=== PATIENT | female | born 1985 | race Caucasian/White ===

== ENCOUNTER 2017-12-25 00:02 | Emergency (ER) | payer BC ==
[~2017-12-25] VITALS: Ht 167.6 cm; Wt 59.0 kg
[~2017-12-25 00:02] MED LIST: CYCL-1 PO
[2017-12-25 00:14] VITALS: BP 131/59
[2017-12-25] MEDS ORDERED: SULF1TAB49 PO (03:36)
== END 2017-12-25 00:52 | disposition left against medical advice (07) ==
LOC: ER 00:02
DX: M79.643 Pain in unspecified hand (principal); Z53.21 Procedure and treatment not carried out due to patient leaving prior to being seen by health care provider

== ENCOUNTER 2017-12-25 00:59 | Emergency (ER) | payer BC ==
[~2017-12-25] VITALS: Ht 165.1 cm; Wt 59.0 kg
[2017-12-25] MEDS ORDERED: sulfamethoxazole/trimethoprim DS (800/160mg) tablet PO ONE (03:35)
[2017-12-25] MEDS ORDERED: SULF1TAB49 PO (03:36)
[2017-12-25] MEDS ORDERED: TETanus/Pertussis (Acell)/Diphther VAC/PF (Tdap-Adult) 0.5ml syringe IMVAC ONE (03:40)
[2017-12-25 04:01] VITALS: BP 125/101
== END 2017-12-25 04:02 | disposition home or self-care (01) ==
LOC: ER 00:59
DX: L03.012 Cellulitis of left finger (principal); S61.211A Laceration without foreign body of left index finger without damage to nail, initial encounter; G89.29 Other chronic pain; F12.10 Cannabis abuse, uncomplicated; Z87.891 Personal history of nicotine dependence; W26.8XXA Contact with other sharp object(s), not elsewhere classified, initial encounter; Y93.89 Activity, other specified; Y92.89 Other specified places as the place of occurrence of the external cause; Y99.8 Other external cause status
CPT/HCPCS: 90471; 90715; 99283

== ENCOUNTER 2019-12-18 20:04 | Emergency (ER) | payer BC ==
[~2019-12-18] VITALS: Ht 167.6 cm; Wt 58.6 kg
[2019-12-18 22:14] VITALS: BP 113/76
== END 2019-12-18 22:16 | disposition home or self-care (01) ==
LOC: ER 20:05
DX: M54.41 Lumbago with sciatica, right side (principal); G89.29 Other chronic pain; F12.90 Cannabis use, unspecified, uncomplicated; Z79.899 Other long term (current) drug therapy
CPT/HCPCS: 99281

== ENCOUNTER 2024-10-30 13:05 | Emergency (ER) | payer BC, MEDICAID ==
[~2024-10-30] VITALS: Ht 167.6 cm; Wt 63.0 kg
[2024-10-30 13:26] VITALS: BP 120/90; PULSE 63; RESP 16; O2SAT 97
[2024-10-30] MEDS ORDERED: HYDR25SU32 RC (14:57)
[2024-10-30 15:05] VITALS: TEMP 98.1
== END 2024-10-30 15:15 | disposition home or self-care (01) ==
LOC: ER 13:06
DX: K92.2 Gastrointestinal hemorrhage, unspecified (principal); F12.90 Cannabis use, unspecified, uncomplicated
CPT/HCPCS: 99282; 99283